=== PATIENT | female | born 1970 | race Caucasian/White ===

== ENCOUNTER 2018-02-06 15:51 | Emergency (ER) | payer MEDICAID ==
[~2018-02-06] VITALS: Ht 165.1 cm; Wt 93.7 kg
[~2018-02-06 15:51] MED LIST: ALBU18HF2 IH; COL100C PO; FAMO-127 PO; FOLI-43 PO; GABA-330 PO; LORA-512 PO; METH2.5T17 PO; MULT-1039 PO; OMEP-84 PO; ONDA4TAB6 PO; ONDA8TAB9 PO; OXYB5TAB80 PO; RANI150C11 PO; SUCR1ORA2 PO; TRAM50TA2 PO; ZOF4T PO
[2018-02-06 15:57] VITALS: BP 110/85
[2018-02-06] MEDS ORDERED: ERYT1OIN6 LEFTEYE (16:43)
== END 2018-02-06 16:57 | disposition home or self-care (01) ==
LOC: ER 15:51
DX: H00.024 Hordeolum internum left upper eyelid (principal); J45.909 Unspecified asthma, uncomplicated; K21.9 Gastro-esophageal reflux disease without esophagitis; M06.9 Rheumatoid arthritis, unspecified; Z90.49 Acquired absence of other specified parts of digestive tract; Z90.710 Acquired absence of both cervix and uterus; Z98.890 Other specified postprocedural states; Z88.6 Allergy status to analgesic agent; Z79.899 Other long term (current) drug therapy; Z56.0 Unemployment, unspecified
CPT/HCPCS: 99283

== ENCOUNTER 2019-07-16 20:36 | Emergency (ER) | payer MEDICAID ==
[~2019-07-16] VITALS: Ht 165.1 cm; Wt 95.0 kg
[~2019-07-16 20:36] MED LIST changes: +IBUP-1985 PO; +TADA10TA PO
[2019-07-16 20:39] VITALS: BP 154/91
[2019-07-16] MEDS ORDERED: normal saline 1000ML IV soln IVB ONE (20:55)
[2019-07-16] MEDS ORDERED: ondansetron/PF 4mg/2ml inj IV ONE (20:55)
[2019-07-16 20:56] LABS: URINE HCG NEGATIVE (NEG)
[2019-07-16 20:57] LABS: CLARITY,URINE CLOUDY (Clear); COLOR,URINE YELLOW (Yellow); GLUCOSE, URINE NEGATIVE (Neg); KETONES,URINE NEGATIVE (Neg); LEUKOCYTE ESTERASE ,URINE NEGATIVE (Neg); NITRITES, URINE NEGATIVE (Neg); OCCULT BLOOD,URINE NEGATIVE (Neg); PROTEIN,URINE NEGATIVE (Neg)
[2019-07-16 20:59] LABS: UA COLLECTION TYPE CLN CATCH MIDSTREAM
[2019-07-16 21:07] LABS: AMORPHOUS PHOSPHATES 4+; BACTERIA,URINE FEW /HPF (Neg); RBC,URINE 0-2 /HPF (0-2); SQUAMOUS EPITHELIAL CELL,UR FEW /LPF (FEW); WBC,URINE 0-4 /HPF (0-4)
[2019-07-16 21:12] LABS: BASOPHILS # (AUTO) 0.1 X10'3 (0-0.2); BASOPHILS % (AUTO) 0.8 % (0-1); EOSINOPHILS # (AUTO) 0.1 X10'3 (0-0.9); EOSINOPHILS % (AUTO) 0.8 % (0-6); HEMATOCRIT 37.6 % (35.0-45.0); HEMOGLOBIN 12.6 g/dl (12.0-16.0); LYMPHOCYTES # (AUTO) 2.7 X10'3 (1.1-4.8); LYMPHOCYTES % (AUTO) 22.7 % (21-51); MEAN CORPUSCULAR HGB CONC 33.4 g/dL (33.0-36.5); MEAN CORPUSCULAR VOLUME 80.7 FL (78-98); MEAN PLATELET VOLUME 8.5 FL (7.4-10.4); MONOCYTES # (AUTO) 0.9 X10'3 (0-0.9); MONOCYTES % (AUTO) 7.2 % (2-12); NEUTROPHILS # (AUTO) 8.1 X10'3 (1.8-7.7); NEUTROPHILS % (AUTO) 68.5 % (42-75); PLATELET COUNT 236 X10'3 (140-440); RED BLOOD COUNT 4.65 X10'6 (4.20-5.60); RED CELL DISTRIBUTION WIDTH 14.7 % (11.5-14.5); WHITE BLOOD COUNT 11.8 X10'3 (4.5-11.0)
[2019-07-16] MEDS: morphine 4 MG/ML inj SYRINge IV PRN ×2 (21:19→21:41)
[2019-07-16 21:21] LABS: ALANINE AMINOTRANSFERASE 15 U/L (12-78); ALBUMIN 3.5 G/DL (3.4-5.0); ALBUMIN/GLOBULIN RATIO 0.9 (1.1-1.5); ALKALINE PHOSPHATASE 94 IU/L (46-116); ANION GAP 8 (8-16); ASPARTATE AMINO TRANSFERASE 20 U/L (10-37); BILIRUBIN,TOTAL 0.4 MG/DL (0.1-1.0); BLOOD UREA NITROGEN 19 MG/DL (7-18); BUN/CREATININE RATIO 20.7 (6.6-38.0); CALCIUM 9.2 MG/DL (8.5-10.1); CHLORIDE 105 MMOL/L (99-107); CREATININE 0.92 MG/DL (0.40-0.90); GLUCOSE 109 MG/DL (70-104); LIPASE 279 U/L (73-393); POTASSIUM 4.1 MMOL/L (3.5-5.1); SODIUM 141 MMOL/L (135-145); TOTAL CARBON DIOXIDE 28.4 MMOL/L (24-32); TOTAL PROTEIN 7.5 G/DL (6.4-8.2); eGFR 65 ML/MIN
== END 2019-07-16 22:23 | disposition home or self-care (01) ==
LOC: ER 20:37
DX: R10.31 Right lower quadrant pain (principal); R10.32 Left lower quadrant pain; R11.2 Nausea with vomiting, unspecified; J45.909 Unspecified asthma, uncomplicated; K21.9 Gastro-esophageal reflux disease without esophagitis; M06.9 Rheumatoid arthritis, unspecified; Z87.442 Personal history of urinary calculi; Z90.49 Acquired absence of other specified parts of digestive tract; Z90.710 Acquired absence of both cervix and uterus; Z98.890 Other specified postprocedural states; Z56.0 Unemployment, unspecified; Z88.7 Allergy status to serum and vaccine; Z79.899 Other long term (current) drug therapy
CPT/HCPCS: 36415; 74176; 80053; 81001; 81025; 83690; 85025; 96361; 96374; 96375; 99284; J2270; J2405; J7030

== ENCOUNTER 2019-09-21 16:30 | Emergency (ER) | payer MEDICAID ==
[~2019-09-21] VITALS: Ht 165.1 cm; Wt 100.0 kg
[2019-09-21] MEDS ORDERED: ketorolac trometh. 30mg/ml inj. IM ONE (17:30)
[2019-09-21] MEDS ORDERED: cyclobenzaprine 10mg tablet PO ONE (17:30)
[2019-09-21 18:49] VITALS: BP 120/70
== END 2019-09-21 18:40 | disposition home or self-care (01) ==
LOC: ER 16:30
DX: M25.551 Pain in right hip (principal); M25.552 Pain in left hip; J45.909 Unspecified asthma, uncomplicated; K21.9 Gastro-esophageal reflux disease without esophagitis; M06.9 Rheumatoid arthritis, unspecified; Z87.442 Personal history of urinary calculi; Z90.49 Acquired absence of other specified parts of digestive tract; Z90.710 Acquired absence of both cervix and uterus; Z98.890 Other specified postprocedural states; Z56.0 Unemployment, unspecified; Z79.899 Other long term (current) drug therapy
CPT/HCPCS: 73502; 96372; 99283; J1885

== ENCOUNTER 2020-01-29 11:11 | Emergency (ER) | payer MEDICAID ==
[~2020-01-29] VITALS: Ht 165.1 cm; Wt 100.0 kg
[2020-01-29 11:36] VITALS: BP 105/69
[2020-01-29] MEDS ORDERED: ibuprofen tablet 400 MG TABLET PO ONE (12:30)
== END 2020-01-29 12:49 | disposition home or self-care (01) ==
LOC: ER 11:11
DX: S93.492A Sprain of other ligament of left ankle, initial encounter (principal); J45.909 Unspecified asthma, uncomplicated; K21.9 Gastro-esophageal reflux disease without esophagitis; M06.9 Rheumatoid arthritis, unspecified; M81.0 Age-related osteoporosis without current pathological fracture; Z87.442 Personal history of urinary calculi; Z90.49 Acquired absence of other specified parts of digestive tract; Z90.710 Acquired absence of both cervix and uterus; Z56.0 Unemployment, unspecified; Z79.899 Other long term (current) drug therapy; W18.39XA Other fall on same level, initial encounter; Y93.89 Activity, other specified; Y92.89 Other specified places as the place of occurrence of the external cause; Y99.8 Other external cause status
CPT/HCPCS: 29515; 73610; 99284

== ENCOUNTER 2020-07-01 11:08 | Day surgery (SDC) | payer MEDICAID ==
[~2020-07-01] VITALS: Ht 165.1 cm; Wt 104.0 kg
[2020-07-01] VITALS (9 sets, daily range): BP systolic 96–127; BP diastolic 65–83
[2020-07-01] MEDS ORDERED: ALB0.5UD (11:34)
[2020-07-01] MEDS ORDERED: CYCL-1 PO (11:34)
[2020-07-01] MEDS ORDERED: GABA-530 PO (11:34)
[2020-07-01] MEDS ORDERED: HYDR-3965 (11:34)
[2020-07-01] MEDS ORDERED: OXYB5TAB16 PO (11:34)
[2020-07-01] MEDS ORDERED: FLUO-1 PO (11:34)
[2020-07-01] MEDS ORDERED: SUCR1TAB (11:34)
[2020-07-01] MEDS ORDERED: MECL-159 PO (11:34)
[2020-07-01] MEDS ORDERED: OMEP-50 PO (11:34)
[2020-07-01] MEDS ORDERED: FAMO20TA8 PO (11:34)
[2020-07-01] MEDS ORDERED: ONDA-103 PO (11:34)
[2020-07-01 12:03] LABS: BASOPHILS # (AUTO) 0.1 X10'3 (0-0.2); BASOPHILS % (AUTO) 0.8 % (0-1); EOSINOPHILS # (AUTO) 0.1 X10'3 (0-0.9); EOSINOPHILS % (AUTO) 1.6 % (0-6); HEMATOCRIT 36.8 % (35.0-45.0); HEMOGLOBIN 12.1 g/dl (12.0-16.0); LYMPHOCYTES # (AUTO) 1.6 X10'3 (1.1-4.8); LYMPHOCYTES % (AUTO) 22.8 % (21-51); MEAN CORPUSCULAR HEMOGLOBIN 25.3 PG (27.0-31.0); MEAN CORPUSCULAR HGB CONC 32.9 g/dL (33.0-36.5); MEAN CORPUSCULAR VOLUME 76.9 FL (78-98); MEAN PLATELET VOLUME 8.6 FL (7.4-10.4); MONOCYTES # (AUTO) 0.6 X10'3 (0-0.9); MONOCYTES % (AUTO) 8.2 % (2-12); NEUTROPHILS # (AUTO) 4.8 X10'3 (1.8-7.7); NEUTROPHILS % (AUTO) 66.6 % (42-75); PLATELET COUNT 208 X10'3 (140-440); RED BLOOD COUNT 4.78 X10'6 (4.20-5.60); RED CELL DISTRIBUTION WIDTH 14.8 % (11.5-14.5); WHITE BLOOD COUNT 7.2 X10'3 (4.5-11.0)
[2020-07-01] MEDS ORDERED: midazolam 2 mg/2 ml injection ONE (12:55)
[2020-07-01] MEDS ORDERED: fentaNYL/PF 50MCG/1 ML 2ML syringe ONE (12:55)
[2020-07-01] MEDS ORDERED: gelatin sponge, absorbable (Gelfoam 12-7MM) sponge TP ONE (12:55)
[2020-07-01] MEDS ORDERED: HYDROcodone/acetaminophen 5mg/325mg tablet PO PRN (13:25)
== END 2020-07-01 17:30 | disposition home or self-care (01) ==
LOC: SSTAY O 11:08
PROVIDERS: ATTEND Radiology Vascular & Interventional Radiology
DX: K76.0 Fatty (change of) liver, not elsewhere classified (principal); K73.8 Other chronic hepatitis, not elsewhere classified; J44.9 Chronic obstructive pulmonary disease, unspecified; M06.9 Rheumatoid arthritis, unspecified; Z88.7 Allergy status to serum and vaccine; Z79.899 Other long term (current) drug therapy; Z90.49 Acquired absence of other specified parts of digestive tract; Z90.710 Acquired absence of both cervix and uterus; Z98.890 Other specified postprocedural states; Z87.442 Personal history of urinary calculi
CPT/HCPCS: 36415; 47000; 76942; 85025; 99152; 99153; J2250; J3010